=== PATIENT | female | born 1960 | race Caucasian/White ===

== ENCOUNTER 2016-04-13 20:04 | Emergency (ER) ==
[2016-04-13 20:07] VITALS: TEMP 98.7; BMI 42.0
[2016-04-13] MEDS ORDERED: CATAPRES PO STA (20:23)
[2016-04-13] MEDS ORDERED: XANAX PO STA (20:23)
--- NOTE | 2016-04-13 20:26 | ED.PDOC ---
General ED Provider: Dr. KOBI SUE Chief Complaint: Earache Stated Complaint: trying to take the ear wax out, it is not coming out. and came for the help, on exam Elevated BP, no headache, no chest pain, not short of breath. I Have BP pills but ran out of them Time Seen by Physician: 20:24 Mode of Arrival: Walk-In Information Source: Patient Primary Care Provider: KOBI SUE-[facility] Nursing and Triage Documentation Reviewed and Agree: Yes EENT Complaint Exam - Ear Complaint/Exam Symptoms Are: Still present Timing: Constant Initial Severity: Mild Current Severity: Mild Aggravating: Reports: None Alleviating: Reports: None Associated Signs and Symptoms: Denies: Ear trauma, Ear swelling, Discharge, Fever, Hearing loss, Bleeding, Sore throat, Headache, URI symptoms, Foreign body sensation, Rash, Pain to external ear, Pain to external face Related History: Reports: Similar Episode Ear Surgical History: None Vesicles to External Pinna: No Vesicles to Tragus: No TMJ Tenderness: None Mastoid Tenderness: None Tragal Tenderness: None External Canal: Normal Material in Canal: Present: Cerumen Tympanic Membrane: Erythema Differential Diagnoses: Cerumen Impaction, Otitis Media, Other (HTN) Review of Systems - Review Of Systems Constitutional: Reports: No symptoms Eyes: Reports: No symptoms Ears, Nose, Mouth, Throat: Reports: Ear pain Respiratory: Reports: No symptoms Cardiac: Reports: No symptoms GI: Reports: No symptoms : Reports: No symptoms Musculoskeletal: Reports: No symptoms Skin: Reports: No symptoms Neurological: Reports: No symptoms Endocrine: Reports: No symptoms Hematologic/Lymphatic: Reports: No symptoms All Other Systems: Reviewed and Negative Past Medical History - Past Medical History Endocrine: Reports: DM 2, Hypothyroid Cardiovascular: Reports: Hypertension Respiratory: Reports: None Hematological: Reports: None Gastrointestinal: Reports: None Genitourinary: Reports: None Neuro/Psych: Reports: None Musculoskeletal: Reports: None Cancer: Reports: None Last Menstrual Period: none - Surgical History General Surgical History: Reports: Unknown - Family History Family History: Reports: Unknown - Social History Smoking Status: Never smoker Hx Substance Use: No Alcohol Screening: Occasionally Physical Exam - Physical Exam Appearance: Well-appearing, Obese Eyes: EOMI ENT: TMs Occluded (both ears has some wax) Respiratory: Airway patent, Breath sounds clear, Breath sounds equal, Respirations nonlabored Cardiovascular: RRR, Pulses normal, No rub, No murmur GI/: Soft, Nontender, No masses, Bowel sounds normal, No Organomegaly Musculoskeletal: Normal strength, ROM intact, No edema, No calf tenderness Skin: Warm, Dry, Normal color Neurological: Sensation intact, Motor intact, Reflexes intact, Cranial nerves intact, Alert, Oriented Psychiatric: Affect appropriate, Mood appropriate Re-Evaluation - Re-Evaluation Time of Re-Evaluation: 21:11 (ear clean left side) Status: Improved Critical Care Note - Critical Care Note Total Time (mins): 0 Course - Course Orders, Labs, Meds: Orders Category Date Time Status Alprazolam [Xanax] MEDS 04/13/16 20:23 Stat 0.5 mg PO ONCE STA Clonidine HCl [Catapres] MEDS 04/13/16 20:23 Stat 0.2 mg PO ONCE STA Vital Signs: Temp Pulse Resp BP Pulse Ox 04/13/16 20:04 98.7 F 91 H 18 171/111 H 95 Departure - Departure Time of Disposition: 21:30 Disposition: HOME SELF-CARE Discharge Problem: Excess ear wax Qualifiers: Laterality: bilateral Qualifier Code: (H61.23) Impacted cerumen, bilateral Hypertension Qualifiers: Hypertension type: essential hypertension Qualifier Code: (I10) Essential ( primary) hypertension Instructions: Hypertension (ED) Condition: Stable Pt referred to PMD for follow-up: Yes Additional Instructions: Ear wash cleared the left ear wax Keep checking the blood pressure Target below 120/80 risk of CAD CVA DISCUSSED Prescriptions: Ciprofloxacin HCl/Dexameth [Ciprodex Otic Suspension] 1 drop OT TID #1 vial Allergies/Adverse Reactions: Allergies No Known Allergies Allergy (Verified 04/13/16 20:07) Home Medications: Ambulatory Orders Cinnamon Bark/Chromium/Ala [Cinnamon Alpha Lipoic Acid Cap] 1 each PO BID Ciprofloxacin HCl/Dexameth [Ciprodex Otic Suspension] 1 drop OT TID #1 vial 07/25 Linagliptin [Tradjenta] 5 mg PO DAILY 04/13/16 Lisinopril 20 mg PO DAILY 04/13/16 Disposition Discussed With: Patient
[2016-04-13] MEDS ORDERED: XANAX ONE (20:29)
[2016-04-13 21:22] VITALS: BP 144/98
== END 2016-04-13 21:25 | disposition home or self-care (01) ==
LOC: ED 20:04
DX: H61.23 Impacted cerumen, bilateral (principal); I10 Essential (primary) hypertension
CPT/HCPCS: 99283

== ENCOUNTER 2016-04-15 16:23 | Emergency (ER) ==
[2016-04-15 16:32] VITALS: BP 115/76; TEMP 101.7; BMI 41.1
--- NOTE | 2016-04-15 16:53 | DI ---
EXAM: Two-view chest HISTORY: Cough TECHNIQUE: Frontal and lateral views of the chest were obtained. FINDINGS: The heart is normal size. Lungs are clear. The pulmonary vasculature appears normal. T he osseous structures and mediastinal contours are normal. IMPRESSION: No active cardiopulmonary disease.
[2016-04-15 17:02] LABS: BASOPHILS # (AUTO) 0.1 K/uL (0-0.2); BASOPHILS % (AUTO) 0.3 % (0.0-3.0); EOSINOPHILS % (AUTO) 0.1 % (0.0-7.0); HEMOGLOBIN 12.8 g/dl (12.0-16.0); IMMATURE GRANULOCYTE % (AUTO) 0.7 % (0.0-5.0); LYMPHOCYTES # (AUTO) 1.1 K/uL (0.60-3.4); LYMPHOCYTES % (AUTO) 5.2 (10.0-50.0); MEAN CORPUSCULAR HGB CONC 32.8 (31.8-35.4); MEAN CORPUSCULAR VOLUME 85.3 fl (81.0-99.0); MONOCYTES # (AUTO) 1.2 K/uL (0.4-2.0); MONOCYTES % (AUTO) 5.4 (0-10); NEUTROPHILS # (AUTO) 19.2 K/ul (2.0-6.9); NEUTROPHILS % (AUTO) 88.3; PLATELET COUNT 291 10^3/uL (140-440); RED BLOOD COUNT 4.57 10^6/ul (4.20-5.40)
[2016-04-15 17:04] LABS: WHITE BLOOD COUNT 21.67 K/ul (4.6-10.2)
[2016-04-15 17:24] LABS: ALBUMIN 3.6 g/dL (3.4-5.0); ALBUMIN/GLOBULIN RATIO 0.84; ANION GAP 17.2; BILIRUBIN,TOTAL 0.38 mg/dL (0.00-1.20); BUN/CREATININE RATIO 13.95; CALCIUM 10.1 mg/dL (8.2-10.2); CREATININE 0.86 mg/dL (0.60-1.30); POTASSIUM 4.2 mmol/L (3.5-5.10); TOTAL PROTEIN 7.9 g/dL (6.4-8.2)
[2016-04-15 17:26] LABS: FLU INTERNAL QC INTERNAL QC VALID; RAPID FLU A NEGATIVE (NEGATIVE); RAPID FLU B NEGATIVE (NEGATIVE)
--- NOTE | 2016-04-15 18:33 | DI ---
EXAM: Two views of the soft tissues of the neck HISTORY: Pain, fever, very high white blood cell count COMPARISON: None available FINDINGS: No abnormal prevertebral soft tissue swelling is seen. The epiglottis is not abnormally thickened. The airway appears patent. There is straightening of the normal cervical lordosis. There is moderate disc height loss at C5-C6 with anterior and posterior osteophyte formation. There is 1.5 mm of posterior listhesis at C5-C6. IMPRESSION: No abnormal prevertebral soft tissue swelling. Straightening of the normal cervical lordosis. 1.5 mm grade 1 posterior listhesis at C5-C6 with moderate degenerative disc disease.
--- NOTE | 2016-04-15 18:39 | CT ---
Exam: CT of the abdomen pelvis without contrast History: Cough Technique: [address] of the abdomen and pelvis without intravascular contrast FINDINGS: The lung windows show no pulmonary parenchymal abnormalities. Heart, great vessels and p ericardium appear normal. Coronary artery calcifications are present. No pathologic lymph node enl argement or abundance. Acute findings of the chest wall soft tissues or bony thorax. Abdomen and pelvis: The gallbladder appears normal. Kidneys and proximal collecting system are unremarkable. The appendi x is normal. Bowel loops demonstrate normal caliber. No inflamatory change seen in the mesentery or retroperitoneum. Atherosclerotic calcification of the aorta without aneurysm. Colonic diverticulosis of the sigmoid. No inflammation of the pelvic fat. No free pelvic fluid. N o acute findings of the skeleton. Impression: 1. No acute findings of the chest 2. No inflammatory process, bowel or urinary obstruction. 3. Colonic diverticulosis
[2016-04-15] MEDS ORDERED: ZITHROMAX PO STA (18:48)
[2016-04-15] MEDS ORDERED: ROCEPHIN IM STA (18:48)
[2016-04-15] MEDS ORDERED: LIDOCAINE 1 % AMP 5 ML (SUTURES) IM STA (18:48)
--- NOTE | 2016-04-15 18:52 | ED.PDOC ---
General ED Provider: Dr. RIA MAURICIO Chief Complaint: Sore Throat Stated Complaint: sore throat Time Seen by Physician: 16:23 Mode of Arrival: Walk-In Information Source: Patient Exam Limitations: No limitations Nursing and Triage Documentation Reviewed and Agree: Yes Review of Systems - Review Of Systems Constitutional: Reports: Fever Eyes: Reports: No symptoms Ears, Nose, Mouth, Throat: Reports: Throat pain Respiratory: Reports: Cough Cardiac: Reports: No symptoms GI: Reports: No symptoms : Reports: No symptoms Musculoskeletal: Reports: No symptoms Skin: Reports: No symptoms Neurological: Reports: No symptoms Endocrine: Reports: No symptoms Hematologic/Lymphatic: Reports: No symptoms All Other Systems: Reviewed and Negative Past Medical History - Past Medical History Endocrine: Reports: DM 2, Hypothyroid Cardiovascular: Reports: Hypertension Respiratory: Reports: None Hematological: Reports: None Gastrointestinal: Reports: None Genitourinary: Reports: None Neuro/Psych: Reports: None Musculoskeletal: Reports: None Cancer: Reports: None Last Menstrual Period: unknown - Surgical History General Surgical History: Reports: Unknown - Family History Family History: Reports: Unknown - Social History Smoking Status: Never smoker Hx Substance Use: No Alcohol Screening: Occasionally Physical Exam - Physical Exam Appearance: Well-appearing, No pain distress, Well-nourished Eyes: AMY, EOMI, Conjunctiva clear ENT: Erythema, Exudate Respiratory: Airway patent, Breath sounds clear, Breath sounds equal, Respirations nonlabored Cardiovascular: RRR, Pulses normal, No rub, No murmur GI/: Soft, Nontender, No masses, Bowel sounds normal, No Organomegaly Musculoskeletal: Normal strength, ROM intact, No edema, No calf tenderness Skin: Warm, Dry, Normal color Neurological: Sensation intact, Motor intact, Reflexes intact, Cranial nerves intact, Alert, Oriented Psychiatric: Affect appropriate, Mood appropriate Interpretation - Radiology Interpretation Radiology Interpretation By: Radiologist Radiology Results: No acute changes Critical Care Note - Critical Care Note Total Time (mins): 0 Course - Course Hematology/Chemistry: 04/15/16 16:50 04/15/16 16:50 Orders, Labs, Meds: Lab Review 04/15/16 04/15/16 16:45 16:50 WBC 21.67 H RBC 4.57 Hgb 12.8 Hct 39.0 MCV 85.3 MCH 28.0 MCHC 32.8 RDW Coeff of Celeste 13.9 Plt Count 291 Immature Gran % (Auto) 0.7 Neut % (Auto) 88.3 Lymph % (Auto) 5.2 L [place] % (Auto) 5.4 Eos % (Auto) 0.1 Baso % (Auto) 0.3 Immature Gran # (Auto) 0.2 Neut # 19.2 H Lymph # 1.1 [place] # 1.2 Eos # 0.0 Baso # 0.1 Sodium 136 Potassium 4.2 Chloride 100 Carbon Dioxide 23 Anion Gap 17.2 BUN 12 Creatinine 0.86 Estimated GFR (MDRD) 69.00 BUN/Creatinine Ratio 13.95 Glucose 286 H Lactic Acid 22.4 H Calcium 10.1 Total Bilirubin 0.38 AST 108 H ALT 30 Alkaline Phosphatase 85 Total Protein 7.9 Albumin 3.6 Globulin 4.3 Albumin/Globulin Ratio 0.84 Influenza A (Rapid) Negative Influenza B (Rapid) Negative Orders Category Date Time Status BLOOD CULTURE Stat LAB 04/15/16 16:50 Received CBC W/ AUTO DIFF Stat LAB 04/15/16 16:50 Completed COMPREHENSIVE METABOLIC PANEL Stat LAB 04/15/16 16:50 Completed LACTIC ACID Stat LAB 04/15/16 16:50 Completed MOLECULAR GROUP A STREP Stat LAB 04/15/16 16:45 Results RAPID FLU A/B Stat LAB 04/15/16 16:45 Completed STREP SCREEN Stat LAB 04/15/16 16:45 Results Azithromycin [Zithromax] MEDS 04/15/16 18:48 Stat 1,000 mg PO ONCE STA Ceftriaxone Sodium [Rocephin] MEDS 04/15/16 18:48 Stat 1 gm IM ONCE STA Lidocaine HCl/Pf [Lidocaine 1 % Amp 5 ml (Sutures)] MEDS 04/15/16 18:48 Stat 2.1 ml IM ONCE STA CHEST, 2 VIEWS PA & LAT Stat RADS 04/15/16 16:[address] ABDOMEN/PELVIS WO CONTRAST Stat RADS 04/15/16 17:[address] CHEST W/O CONTRAST Stat RADS 04/15/16 17:32 Completed NECK, SOFT TISSUE Stat RADS 04/15/16 17:33 Completed Medications Discontinued Medications Generic Name Dose Route Start Last Admin Trade Name Freq PRN Reason Stop Dose Admin Azithromycin 1,000 mg 04/15/16 18:48 Zithromax PO 04/15/16 18:49 ONCE STA Ceftriaxone Sodium 1 gm 04/15/16 18:48 Rocephin IM 04/15/16 18:49 ONCE STA Lidocaine HCl 2.1 ml 04/15/16 18:48 Lidocaine 1 % Amp 5 Ml (Sutures) IM 04/15/16 18:49 ONCE STA Vital Signs: Temp Pulse Resp BP Pulse Ox 04/15/16 16:23 101.7 F H 107 H 20 115/76 93 L Departure - Departure Time of Disposition: 18:51 (seen with staff at all time high WBC AND POSSIBLITY OF OCCLUT INFECTION DISCUSSED WITH NURSE AT BEDSIDE PT UNDERSTANDS MUST RETURN IF UNWELL ) Disposition: HOME SELF-CARE Discharge Problem: Sore throat symptom, Uncontrolled diabetes mellitus Instructions: Type 2 Diabetes in Adults (ED), Pharyngitis (ED) Condition: Good Pt referred to PMD for follow-up: No Prescriptions: Azithromycin [Zithromax] 250 mg PO DIRECTED #6 tablet Allergies/Adverse Reactions: Allergies No Known Allergies Allergy (Verified 04/15/16 16:31) Home Medications: Ambulatory Orders Cinnamon Bark/Chromium/Ala [Cinnamon Alpha Lipoic Acid Cap] 1 each PO BID Ciprofloxacin HCl/Dexameth [Ciprodex Otic Suspension] 1 drop OT TID #1 vial 07/25 Linagliptin [Tradjenta] 5 mg PO DAILY 04/13/16 Lisinopril 20 mg PO DAILY 04/13/16 Azithromycin [Zithromax] 250 mg PO DIRECTED #6 tablet 04/15/16 Disposition Discussed With: Patient
== END 2016-04-15 19:32 | disposition home or self-care (01) ==
LOC: ED 16:23
DX: J02.9 Acute pharyngitis, unspecified (principal); E11.65 Type 2 diabetes mellitus with hyperglycemia; D72.829 Elevated white blood cell count, unspecified; Z79.899 Other long term (current) drug therapy
CPT/HCPCS: 36415; 80053; 83605; 85025; 87040; 87651; 87804; 87880; 96372; 99283

== ENCOUNTER 2016-06-25 08:44 | Outpatient (CLI) ==
[2016-06-25 14:19] VITALS: BMI 42.2
== END 2016-06-25 08:45 ==
LOC: AMBL 08:44
PROVIDERS: ATTEND Emergency Medicine
DX: R06.02 Shortness of breath (principal); R09.02 Hypoxemia; R06.2 Wheezing; I10 Essential (primary) hypertension; E11.9 Type 2 diabetes mellitus without complications

== ENCOUNTER 2016-06-25 08:53 | Inpatient (IN) ==
[2016-06-25] MEDS ORDERED: ROCEPHIN 1 GM in SODIUM CHLORIDE 100 ML IV STA (09:04)
[2016-06-25] MEDS ORDERED: SOLU-MEDROL 125 MG IVP STA (09:04)
[2016-06-25] MEDS ORDERED: DUONEB NEB STA (09:04)
[2016-06-25] MEDS ORDERED: ROCEPHIN ONE (09:08)
[2016-06-25] MEDS ORDERED: MORPHINE 2 MG/ML SYRINGE IVP STA (09:08)
[2016-06-25] MEDS ORDERED: LASIX IVP STA (09:08)
--- NOTE | 2016-06-25 09:08 | ED.PDOC ---
General ED Provider: Dr. KOBI SUE Chief Complaint: Respiratory Complaint Stated Complaint: Patient ran out of her medication, been short of breath lateley, today she could not breath, called ambulance and brought here Time Seen by Physician: 09:06 Mode of Arrival: Ambulance Information Source: Patient Primary Care Provider: KOBI SUE-[facility] Nursing and Triage Documentation Reviewed and Agree: Yes Respiratory Complaint Exam - Shortness of Air Complaint/Exam Symptoms Are: Still present Timing: Constant Initial Severity: Severe Current Severity: Severe Character: Reports: Dyspnea at rest Aggravating: Reports: Movement Alleviating: Reports: None Associated Signs and Symptoms: Reports: Wheezing, Diaphoresis, Edema, Rapid breathing. Denies: Cough, Chest pain with cough, Chest pain, Fever, Chills, Nasal congestion, Dizziness, Calf pain, Calf swelling, Labored breathing, Decreased intake Related History: Reports: Similar episode History of Healthcare-Acquired Pneumonia: No Pulmonary Embolism Risk Factors: Reports: None Cardiac Risk Factors: Reports: Smoking, Elevated lipids, Hypertension Pseudomonas Risk Factors: Reports: None Tuberculosis Risk Factors: Reports: None Home Oxygen Use: No Recent Stress Test: No Recent Echo/LV Function: No Respiratory Distress: Severe Stridor Present: No Tracheal Deviation: No Subcutaneous Emphysema: No Accessory Muscle Use: Yes Retractions: Nasal Flaring, Supraclavicular Diminished Breath Sounds: Yes Prolonged Expiratory Phase: No Unable to Speak Full Sentences: Yes Leg Swelling: Yes Differential Diagnoses: CHF, Pulmonary Edema, COPD Exacerbation, Pneumonia Quality Indicators for AMI: EKG in 10min. Review of Systems - Review Of Systems Constitutional: Reports: Diaphoresis, Malaise, Weakness Eyes: Reports: No symptoms Ears, Nose, Mouth, Throat: Reports: No symptoms Respiratory: Reports: Short of air Cardiac: Reports: Edema GI: Reports: No symptoms : Reports: No symptoms Musculoskeletal: Reports: No symptoms Skin: Reports: No symptoms Neurological: Reports: No symptoms Endocrine: Reports: No symptoms Hematologic/Lymphatic: Reports: No symptoms All Other Systems: Reviewed and Negative Past Medical History - Past Medical History Endocrine: Reports: DM 2, Hypothyroid Cardiovascular: Reports: Hypertension Respiratory: Reports: None Hematological: Reports: None Gastrointestinal: Reports: None Genitourinary: Reports: None Neuro/Psych: Reports: None Musculoskeletal: Reports: None Cancer: Reports: None Last Menstrual Period: unknown - Surgical History General Surgical History: Reports: Unknown - Family History Family History: Reports: Unknown - Social History Smoking Status: Never smoker Hx Substance Use: No Alcohol Screening: Occasionally Physical Exam - Physical Exam Appearance: Ill-appearing Ill-appearing: Severe Eyes: EOMI, Conjunctiva clear ENT: Ears normal, Nose normal, Oropharynx normal Respiratory: Breath sounds diminished, Crackles Cardiovascular: RRR, Pulses normal, No rub, No murmur GI/: Soft, Nontender, No masses, Bowel sounds normal, No Organomegaly Musculoskeletal: Edema Skin: Warm, Dry, Normal color Neurological: Sensation intact, Motor intact, Reflexes intact, Cranial nerves intact, Alert, Oriented Psychiatric: Affect appropriate, Mood appropriate Interpretation - Radiology Interpretation Radiology Interpretation By: Radiologist Radiology Results: Positive Exam Interpreted: CXR Critical Care Note - Critical Care Note Total Time (mins): 0 Course - Course Hematology/Chemistry: 06/25/16 09:05 06/25/16 09:05 Orders, Labs, Meds: Lab Review 06/25/16 06/25/16 06/25/16 09:04 09:05 09:30 WBC 15.39 H RBC 4.46 Hgb 12.6 Hct 39.7 MCV 89.0 MCH 28.3 MCHC 31.7 L RDW Coeff of Celeste 14.7 Plt Count 371 Immature Gran % (Auto) 0.8 Neut % (Auto) 56.6 Lymph % (Auto) 33.7 [place] % (Auto) 6.3 Eos % (Auto) 2.1 Baso % (Auto) 0.5 Immature Gran # (Auto) 0.1 Neut # 8.7 H Lymph # 5.2 H [place] # 1.0 Eos # 0.3 Baso # 0.1 D-Dimer 0.81 Puncture Site Rrad O2 Saturation 76.0 L ABG pH 7.118 L* ABG pCO2 45.7 H ABG pO2 54.0 L* ABG HCO3 14.8 L ABG Total CO2 16 L ABG Base Excess -15 L Luis Test + FiO2 % 21.0 Sodium 136 Potassium 3.9 Chloride 100 Carbon Dioxide 17 L Anion Gap 22.9 BUN 19 H Creatinine 1.38 H Estimated GFR (MDRD) 40.00 BUN/Creatinine Ratio 13.76 Glucose 641 H* Lactic Acid 59.4 H Calcium 9.3 Total Bilirubin 0.31 AST 30 ALT 27 Alkaline Phosphatase 82 Total Creatine Kinase 31 Troponin I 0.0200 B-Natriuretic Peptide 1135 H Total Protein 7.3 Albumin 3.3 L Globulin 4.0 Albumin/Globulin Ratio 0.83 Procalcitonin < 0.05 Acetone, Qual None Orders Category Date Time Status ABG DRAW REQUEST Stat CARDIO 06/25/16 09:04 Completed EKG-(ED ONLY) Stat CARDIO 06/25/16 09:04 Completed NEBULIZER TREATMENT Stat CARDIO 06/25/16 09:04 Completed BLOOD GLUCOSE MONITORING Q1HR CARE 06/25/16 10:10 Inactive BLOOD GLUCOSE MONITORING Q1HR CARE 06/25/16 11:17 Ordered ED IV/MEDIPORT/POWERPORT .ONCE EMERGENCY 06/25/16 09:04 Active ABG Stat LAB 06/25/16 09:04 Completed ACETONE, QUALITATIVE Stat LAB 06/25/16 09:05 Completed B-TYPE NATRIURETIC PEPTIDE Stat LAB 06/25/16 09:05 Completed BLOOD CULTURE Stat LAB 06/25/16 09:30 Received CBC W/ AUTO DIFF Stat LAB 06/25/16 09:05 Completed COMPREHENSIVE METABOLIC PANEL Stat LAB 06/25/16 09:05 Completed CREATINE KINASE Stat LAB 06/25/16 09:05 Completed D-DIMER Stat LAB 06/25/16 09:05 Completed LACTIC ACID Stat LAB 06/25/16 09:30 Completed PROCALCITONIN Stat LAB 06/25/16 09:30 Completed TROPONIN I Stat LAB 06/25/16 09:05 Completed URINALYSIS C & S IF INDICATED Stat LAB 06/25/16 10:09 Uncollected 0.9 % Sodium Chloride [Saline Flush] MEDS 06/25/16 09:04 Active 1 syr IVF PRN PRN Ceftriaxone Sodium [Rocephin] MEDS 06/25/16 09:08 Discontinued 1 gm .ROUTE .STK-MED ONE Ceftriaxone Sodium [Rocephin] 1 gm MEDS 06/25/16 09:04 Discontinued 0.9 % Sodium Chloride [Sodium Chloride] 100 ml IV ONCE Furosemide [Lasix] MEDS 06/25/16 09:08 Discontinued 60 mg IVP ONCE STA Insulin Regular, Human [Humulin R] MEDS 06/25/16 11:17 Stat 15 unit SUBCUT ONCE STA Ipratropium/Albuterol Neb [Duoneb] MEDS 06/25/16 09:04 Discontinued 1 vial NEB ONCE STA Methylprednisolone Sod Succ/Pf [Solu-Medrol 125 mg] MEDS 06/25/16 09:04 Discontinued 125 mg IVP ONCE STA Morphine Sulfate [Morphine 2 mg/ml Syringe] MEDS 06/25/16 09:08 Discontinued 2 mg IVP ONCE STA CHEST, 1V AP ONLY Stat RADS 06/25/16 09:04 Completed Medications Generic Name Dose Route Start Last Admin Trade Name Freq PRN Reason Stop Dose Admin Sodium Chloride 1 syr 06/25/16 09:04 06/25/16 09:24 Saline Flush IVF 1 syr PRN PRN Administration To flush IV Discontinued Medications Generic Name Dose Route Start Last Admin Trade Name Freq PRN Reason Stop Dose Admin Albuterol/Ipratropium 1 vial 06/25/16 09:04 06/25/16 09:33 Duoneb NEB 06/25/16 09:05 1 vial ONCE STA Administration Furosemide 60 mg 06/25/16 09:08 06/25/16 09:23 Lasix IVP 06/25/16 09:09 60 mg ONCE STA Administration Ceftriaxone Sodium 1 gm/ 100 mls @ 100 mls/hr 06/25/16 09:04 06/25/16 09:49 Sodium Chloride IV 06/25/16 10:03 100 mls/hr ONCE STA Administration Methylprednisolone Sodium Succinate 125 mg 06/25/16 09:04 06/25/16 09:24 Solu-Medrol 125 Mg IVP 06/25/16 09:05 125 mg ONCE STA Administration Morphine Sulfate 2 mg 06/25/16 09:08 06/25/16 09:26 Morphine 2 Mg/Ml Syringe IVP 06/25/16 09:09 2 mg ONCE STA Administration Vital Signs: Temp Pulse Resp BP Pulse Ox 06/25/16 08:54 95.2 F L 150 H 32 H 202/133 H 83 L Departure - Departure Time of Disposition: 11:20 Disposition: ADMITTED INPATIENT Discharge Problem: Hypertensive urgency DKA (diabetic ketoacidoses) Qualifiers: Diabetes mellitus type: type 2 Diabetes mellitus complication detail: without coma Qualifier Code: (E13.10) Other specified diabetes mellitus with ketoacidosis without coma CHF (congestive heart failure) Qualifiers: Congestive heart failure type: unspecified congestive heart failure type Congestive heart failure chronicity: acute on chronic Qualifier Code: (I50.9) Heart failure, unspecified Instructions: Type 2 Diabetes in Adults (ED) Condition: Poor Pt referred to PMD for follow-up: No Allergies/Adverse Reactions: Allergies No Known Allergies Allergy (Verified 04/15/16 16:31) Home Medications: Ambulatory Orders Cinnamon Bark/Chromium/Ala [Cinnamon Alpha Lipoic Acid Cap] 1 each PO BID Linagliptin [Tradjenta] 5 mg PO DAILY 04/13/16 Lisinopril 20 mg PO DAILY 04/13/16 Disposition Discussed With: Patient
[2016-06-25 09:13] LABS: BASOPHILS # (AUTO) 0.1 K/uL (0-0.2); BASOPHILS % (AUTO) 0.5 % (0.0-3.0); EOSINOPHILS # (AUTO) 0.3 K/ul (0.0-0.7); EOSINOPHILS % (AUTO) 2.1 % (0.0-7.0); HEMATOCRIT 39.7 % (37.0-47.0); HEMOGLOBIN 12.6 g/dl (12.0-16.0); IMMATURE GRANULOCYTE % (AUTO) 0.8 % (0.0-5.0); LYMPHOCYTES # (AUTO) 5.2 K/uL (0.60-3.4); LYMPHOCYTES % (AUTO) 33.7 (10.0-50.0); MEAN CORPUSCULAR HEMOGLOBIN 28.3 pg (27.0-31.0); MEAN CORPUSCULAR HGB CONC 31.7 (31.8-35.4); MONOCYTES % (AUTO) 6.3 (0-10); NEUTROPHILS # (AUTO) 8.7 K/ul (2.0-6.9); NEUTROPHILS % (AUTO) 56.6; PLATELET COUNT 371 10^3/uL (140-440); RED BLOOD COUNT 4.46 10^6/ul (4.20-5.40); WHITE BLOOD COUNT 15.39 K/ul (4.6-10.2)
[2016-06-25 09:20] LABS: ABG PCO2 45.7 mmHg (35-45); ABG PH 7.118 (7.35-7.45)
[2016-06-25 09:21] LABS: ABG BASE EXCESS -15 (-2.0-2.0); ABG HCO3 14.8 (22.0-26.0); ABG TCO2 16 (22.0-28.0)
[2016-06-25 09:39] LABS: ALBUMIN 3.3 g/dL (3.4-5.0); ALBUMIN/GLOBULIN RATIO 0.83; ANION GAP 22.9; BILIRUBIN,TOTAL 0.31 mg/dL (0.00-1.20); BUN/CREATININE RATIO 13.76; CALCIUM 9.3 mg/dL (8.2-10.2); CREATININE 1.38 mg/dL (0.60-1.30); POTASSIUM 3.9 mmol/L (3.5-5.10); TOTAL PROTEIN 7.3 g/dL (6.4-8.2); TROPONIN I 0.02 ng/ml (0.0000-0.4000)
--- NOTE | 2016-06-25 09:50 | DI ---
EXAM: CHEST FRONTAL VIEW HISTORY: Shortness of breath. COMPARISON: 04/15/2016 FINDINGS: Prominent heart size is stable. Interval development of central interstitial infiltrates and vascular congestion. Probable trace bilateral pleural effusions. No pneumothorax or lobar con solidation. IMPRESSION: Prominent heart size. Mild central vascular congestion and mild to moderate interstitial edema.
[2016-06-25] MEDS ORDERED: HUMALOG SUBCUT STA (10:09)
[2016-06-25] MEDS ORDERED: HUMULIN R SUBCUT STA (11:17)
[2016-06-25] MEDS ORDERED: TYLENOL PO PRN (11:22)
[2016-06-25] MEDS ORDERED: HUMULIN R 100 UNIT in SODIUM CHLORIDE 100 ML IV SCH (11:30)
[2016-06-25 14:19] VITALS: BMI 42.2
[2016-06-25] MEDS: SODIUM CHLORIDE 1,000 ML IV SCH (14:42)
[2016-06-25] MEDS: HUMULIN R SUBCUT PRN ×4 (15:21→18:13)
[2016-06-25 18:23] LABS: TROPONIN I 0.211 ng/ml (0.0000-0.4000)
[2016-06-25 18:34] LABS: BILIRUBIN,URINE Negative (NEGATIVE); KETONES,URINE Trace (NEGATIVE); LEUKOCYTE ESTERASE ,URINE Negative (NEGATIVE); NITRITE,URINE Negative (NEGATIVE); PH,URINE 5.5 (5-9); PROTEIN,URINE Negative (NEGATIVE); URINE, BLOOD Trace-intact (NEGATIVE)
[2016-06-25 18:36] LABS: ADD URINE MICROSCOPIC YES
[2016-06-25] MEDS: HUMULIN R 100 UNIT in SODIUM CHLORIDE 100 ML IV SCH (18:47)
[2016-06-25] MEDS ORDERED: ALA PO SCH (21:00)
[2016-06-25] MEDS ORDERED: CHROMIUM PO SCH (21:00)
[2016-06-25] MEDS ORDERED: CINNAMON BARK PO SCH (21:00)
[2016-06-25] MEDS ORDERED: [UNRECOGNIZED DRUG - OTHER] PO SCH (21:00)
[2016-06-26 01:34] LABS: BASOPHILS % (AUTO) 0.2 % (0.0-3.0); HEMATOCRIT 34.7 % (37.0-47.0); HEMOGLOBIN 11.5 g/dl (12.0-16.0); IMMATURE GRANULOCYTE % (AUTO) 0.9 % (0.0-5.0); LYMPHOCYTES # (AUTO) 1.2 K/uL (0.60-3.4); LYMPHOCYTES % (AUTO) 7.6 (10.0-50.0); MEAN CORPUSCULAR HGB CONC 33.1 (31.8-35.4); MEAN CORPUSCULAR VOLUME 84.6 fl (81.0-99.0); MONOCYTES % (AUTO) 6.3 (0-10); NEUTROPHILS # (AUTO) 13.6 K/ul (2.0-6.9); PLATELET COUNT 324 10^3/uL (140-440); WHITE BLOOD COUNT 15.98 K/ul (4.6-10.2)
[2016-06-26 03:40] LABS: ALBUMIN 3.3 g/dL (3.4-5.0); ALBUMIN/GLOBULIN RATIO 0.85; ANION GAP 15.1; BILIRUBIN,TOTAL 0.33 mg/dL (0.00-1.20); BUN/CREATININE RATIO 23.52; CALCIUM 9.9 mg/dL (8.2-10.2); CREATININE 0.85 mg/dL (0.60-1.30); POTASSIUM 4.1 mmol/L (3.5-5.10); TOTAL PROTEIN 7.2 g/dL (6.4-8.2)
[2016-06-26 03:46] LABS: TROPONIN I 0.193 ng/ml (0.0000-0.4000)
[2016-06-26] MEDS: SODIUM CHLORIDE 1,000 ML IV SCH ×2 (04:30→17:37)
[2016-06-26] MEDS: HUMULIN R SUBCUT PRN ×9 (04:41→21:57)
[2016-06-26] MEDS: LASIX IVP SCH (06:19)
[2016-06-26] MEDS: ZESTRIL PO SCH (08:31)
[2016-06-26] MEDS: ROCEPHIN 1 GM in SODIUM CHLORIDE 100 ML IV SCH (08:31)
[2016-06-26] MEDS: CINNAMON BARK PO SCH ×2 (08:32→20:22)
[2016-06-26] MEDS: [UNRECOGNIZED DRUG - OTHER] PO SCH ×2 (08:32→20:22)
[2016-06-26] MEDS: CHROMIUM PO SCH ×2 (08:32→20:22)
[2016-06-26] MEDS: ALA PO SCH ×2 (08:32→20:22)
[2016-06-26] MEDS ORDERED: NON-FORMULARY MEDICATION (Lisinopril [Lisinopril] 20 MG) PO SCH ×22 (09:00)
[2016-06-26] MEDS: TRADJENTA PO SCH (10:06)
[2016-06-26] MEDS: GLUCOPHAGE PO SCH ×2 (10:06→20:22)
[2016-06-26] MEDS: HYDROCHLOROTHIAZIDE PO SCH (10:06)
[2016-06-26] MEDS ORDERED: HUMULIN R ONE ×2 (11:15→14:54)
[2016-06-26] MEDS: HUMULIN R 100 UNIT in SODIUM CHLORIDE 100 ML IV SCH (15:30)
[2016-06-27] MEDS: HUMULIN R SUBCUT PRN ×6 (00:29→16:32)
[2016-06-27 04:54] LABS: BASOPHILS # (AUTO) 0.1 K/uL (0-0.2); BASOPHILS % (AUTO) 0.3 % (0.0-3.0); EOSINOPHILS # (AUTO) 0.2 K/ul (0.0-0.7); EOSINOPHILS % (AUTO) 1.2 % (0.0-7.0); HEMATOCRIT 36.9 % (37.0-47.0); HEMOGLOBIN 11.7 g/dl (12.0-16.0); IMMATURE GRANULOCYTE % (AUTO) 0.7 % (0.0-5.0); LYMPHOCYTES # (AUTO) 5.2 K/uL (0.60-3.4); LYMPHOCYTES % (AUTO) 29.1 (10.0-50.0); MEAN CORPUSCULAR HEMOGLOBIN 27.7 pg (27.0-31.0); MEAN CORPUSCULAR HGB CONC 31.7 (31.8-35.4); MEAN CORPUSCULAR VOLUME 87.2 fl (81.0-99.0); MONOCYTES # (AUTO) 1.4 K/uL (0.4-2.0); MONOCYTES % (AUTO) 7.7 (0-10); NEUTROPHILS # (AUTO) 10.8 K/ul (2.0-6.9); PLATELET COUNT 332 10^3/uL (140-440); RED BLOOD COUNT 4.23 10^6/ul (4.20-5.40); WHITE BLOOD COUNT 17.76 K/ul (4.6-10.2)
[2016-06-27 05:18] LABS: ALBUMIN 3.2 g/dL (3.4-5.0); ALBUMIN/GLOBULIN RATIO 0.89; BILIRUBIN,TOTAL 0.21 mg/dL (0.00-1.20); BUN/CREATININE RATIO 25.88; CALCIUM 9.7 mg/dL (8.2-10.2); CREATININE 0.85 mg/dL (0.60-1.30); TOTAL PROTEIN 6.8 g/dL (6.4-8.2)
[2016-06-27] MEDS: LASIX IVP SCH (05:32)
[2016-06-27] MEDS: ALA PO SCH (09:18)
[2016-06-27] MEDS: CINNAMON BARK PO SCH (09:18)
[2016-06-27] MEDS: GLUCOPHAGE PO SCH (09:18)
[2016-06-27] MEDS: HYDROCHLOROTHIAZIDE PO SCH (09:18)
[2016-06-27] MEDS: CHROMIUM PO SCH (09:18)
[2016-06-27] MEDS: [UNRECOGNIZED DRUG - OTHER] PO SCH (09:18)
[2016-06-27] MEDS: ROCEPHIN 1 GM in SODIUM CHLORIDE 100 ML IV SCH (09:19)
[2016-06-27] MEDS: TRADJENTA PO SCH (09:23)
[2016-06-27] MEDS: ZESTRIL PO SCH (09:24)
--- NOTE | 2016-06-27 13:08 | ECHO2D ---
Date of Exam: 06/27/16 Ordering Physician: HOSPITALIST-KOBI SUE Reason for Echo: CHF M-Mode Normal Adult Results LV Dimensions Normal Adult Results AoV Opening excursions >1.6 LVEDD-base- 3.5-5.8 Ao root dimensions 2.0-3.7 LVESD-base- 3.1-4.6 L. Atrium dimensions 1.9-3.8 Post. Wall thickness 0.8-1.1 IV septum (thickness) 0.7-1.2 Post. Wall excursion 0.72-1.3 Septal motion Systolic motion R. Ventricular cavity 1.5-2.0 LVEF 60% Paradoxical septal wall motion 2-D : M-MODE: MV: AV: TV: PV: CHAMBER SIZE: WALL MOTION: PERICARDIUM: MILD PERICARDIAL EFFUSION INTERPRETATION: 1. LEFT VENTRICULAR HYPERTROPHY 2. ENLARGED LEFT ATRIAL CAVITY 3. HYPOKINETIC LEFT VENTRICLE--LEFT VENTRICULAR EJECTION FRACTION 35-40% 4. DILATED LEFT VENTRICLE SIZE 5. MILD PERICARDIAL EFFUSION MTDD
[2016-06-27 14:11] VITALS: BP 126/82; TEMP 96.6
--- NOTE | 2016-06-30 09:06 | ECHO2D ---
Date of Exam: 06/27/2016 [facility]ing Physician[facility], HOSPITALIST DR. SUE Reason for Echo: CONGESTIVE HEART FAILURE, HISTORY OF DIABETES MELLITUS, HYPERTENSION, SHORTNESS OF BREATH M-Mode Normal Adult Results LV Dimensions Normal Adult Results AoV Opening excursions >1.6 >1.6 LVEDD-base- 3.5-5.8 6.2 Ao root dimensions 2.0-3.7 LVESD-base- 3.1-4.6 L. Atrium dimensions 1.9-3.8 4.2 Post. Wall thickness 0.8-1.1 1.1 IV septum (thickness) 0.7-1.2 1.2 Post. Wall excursion 0.72-1.3 0.8 Septal motion 0.7 Systolic motion R. Ventricular cavity 1.5-2.0 NORMAL LVEF 60% 35% Paradoxical septal wall motion NORMAL 2-D : NORMAL VALVES, HYPOKINETIC LEFT VENTRICLE, MILD PERICARDIAL EFFUSION, NO THROMBUS, ENLARGED LEFT VENTRICLE AND LEFT ATRIAL CAVITIES M-MODE: MV: NORMAL AV: NORMAL TV: NORMAL PV: CHAMBER SIZE: ENLARGED LEFT ATRIAL AND LEFT VENTRICLE CAVITIES WALL MOTION: HYPOKINETIC LEFT VENTRICLE PERICARDIUM: MILD PERICARDIAL EFFUSION INTERPRETATION: 1. LEFT VENTRICULAR HYPERTROPHY BORDERLINE 2. ENLARGED LEFT ATRIAL CAVITY 3. HYPOKINETIC LEFT VENTRICLE, LEFT VENTRICULAR EJECTION FRACTION 35% TO 40% 4. DILATED LEFT VENTRICLE SIZE 5. MILD PERICARDIAL EFFUSION MTDD
--- NOTE | 2016-07-01 13:59 | PN ---
DATE OF SERVICE: 06/26/16 SUBJECTIVE: The patient is was admitted with the DKA, acute on chronic heart failure. She is feeling a lot better and breathing better. S.he is off the insulin drip. REVIEW OF SYSTEMS: CONSTITUTIONAL: No fever, no chills. HEENT: Normal. ENDOCRINE: No weight gain, no weight loss. CVS: No angina symptoms. No CHF symptoms. No palpitations. No atypical chest pain for CAD. Some shortness of breath. No PND, no orthopnea. RESPIRATORY: No cough, no hemoptysis. GI: No nausea, no vomiting. No abdominal pain. : No hematuria. No polyuria. MUSCULOSKELETAL:. No joint swelling. PSYCHIATRIC: Not anxious. No depression. No suicidal thoughts. No homicidal thoughts. SKIN: Intact. No rash. PHYSICAL EXAMINATION: V/S: Blood pressure 119/74, respiratory rate 16, heart rate 100 and temperature 97.1. HEENT: Normocephalic, atraumatic. Ears, eyes, nose and throat normal. Mucosa dry. NECK: Supple. No JVD, no carotid bruit. No lymphadenopathy. LUNGS:Decreased and Clear to auscultation. No rales or rhonchi. HEART: S1, S2 normal. No S3. No murmur, gallop or regurgitation. ABDOMEN: Soft, nontender. Bowel sounds active. No rigidity. No rebound or guarding. No CVA tenderness. EXTREMITIES: No clubbing, cyanosis. 1-2+ edema left lower extremity, right lower extremity 1 edema. MUSCULOSKELETAL: No joint swelling. NEUROLOGIC: Awake, alert, oriented times three. No focal deficit. LYMPHATIC: No lymph nodes palpable. SKIN: Intact. LABS: WBC 15.98, hgb 11.5, hct 34.7, plt count 324, sodium 139, potassium 4.1, chloride 104, bicarb 25, BUN 20, creatinine 0.84 and glucose 142. A1c 8.9. ASSESSMENT: 1. Acute on chronic heart failure 2. Status post DKA 3. Diabetes with A1c 8.9 4. Hypertension 5. Dyslipidemia PLAN: 1. Continue Rocephin 2. Resume oral antidiabetic medications 3. Duo Nebs 4. Daily I&O's 5. Stop the IV fluids Will follow the patient in daily rounds. TIME SPENT: More than 30 minutes MTDD
--- NOTE | 2016-07-07 15:09 | DS ---
DATE OF SERVICE: 06/27/16 FINAL DIAGNOSIS: 1. Acute hypoxemic respiratory failure 2. DKA 3. Acute congestive heart failure with ejection fraction of 35-40%. 4. Non-compliance 5. History of diabetes 6. Hypertension 7. Dyslipidemia DISCHARGE INSTRUCTIONS: Discharge the patient home. Accu-check machine counter was given to the patient. Diet control. Weight loss been discussed with the patient in detail. Lifestyle modification been discussed. MEDICATIONS AT DISCHARGE: Hydrochlorothiazide Cinnamon Alpha Lipoic Acid Cap Tradjenta Lisinopril Glucotrol Lasix Metformin NEW PRESCRIPTIONS: Metformin 1,000 twice a day Glipizide 10mg twice a day with Meals Lasix 2mg PO every morning Lisinopril 20mg PO daily DIET INSTRUCTIONS: Consistent Carbohydrates ACTIVITY: Gradually resume as tolerated. SMOKING: Non-Smoker DISEASE SPECIFIC EDUCATION: New onset Congestive heart failure Lifestyle modification and weight loss been discussed Verbalized understanding. Pain medication Compliance been discussed and patient has been provided with the [facility] $4 scripts DKA Diabetes,poorly controlled diabetes Risk of coronary artery disease been discussed and the back verbalized understanding. HOSPITAL COURSE: Casandra Noble was seen in the emergency room and was admitted with the DKA and acute respiratory failure and acute congestive heart failure. Started on the IV fluids. After giving Lasix because of the DKA and started on the Insulin drip for the same gradually the patient started feeling better. With the Lasix the patient's breathing was a lot improved. Next day we had to stop the insulin drip , sugar have still been high then started on the oral medication Metformin and gradually the sugars were getting better in review of new onset congestive heart failure. The patient had echocardiogram which did show LVH, left atrial cavity enlargement and ejection fraction of 35-40%. Acute congestive heart failure been discussed with the patient in detail and the fluid management been discussed and verbalized understanding. She will be seen by me in the [facility] in two days and we will recheck the Accu-checks there. Lifestyle modifications and weight loss been discussed again. The patient verbalized understanding. TIME SPENT: More than 55 minutes today. TIME SPENT: More than 60 minutes. [place]
--- NOTE | 2016-07-07 15:18 | PN ---
DATE OF SERVICE: 06/25/16 SUBJECTIVE: The patient was admitted from the emergency room by me. Again came here to recheck because the initial blood sugar dropped to 100 and the insulin was not started but again the sugars went up to 300 and 400. The patient has to be restarted on the insulin drip. Breathing is some better. We will go ahead and order the A1c and continue the insulin drip at given time. REVIEW OF SYSTEMS: CONSTITUTIONAL: No fever, no chills. HEENT: Normal. ENDOCRINE: No weight gain, no weight loss. CVS: No angina symptoms. No CHF symptoms. No palpitations. No atypical chest pain for CAD. No shortness of breath. No PND, no orthopnea. RESPIRATORY: No cough, no hemoptysis. GI: No nausea, no vomiting. No abdominal pain. : No hematuria. No polyuria. MUSCULOSKELETAL:. No joint swelling. PSYCHIATRIC: Not anxious. No depression. No suicidal thoughts. No homicidal thoughts. SKIN: Intact. No rash. PHYSICAL EXAMINATION: V/S: Blood pressure 138/74, respiratory rate 18, heart rate 100, temperature 97.0. GENERAL: The patient is lying in the best comfortably. HEENT: Normocephalic, atraumatic. Ears, eyes, nose and throat normal. NECK: Supple. No JVD, no carotid bruit. No lymphadenopathy. LUNGS: Still has basilar crackles. No rales or rhonchi. HEART: S1, S2 normal. No S3. No murmur, gallop or regurgitation. ABDOMEN: Soft, nontender. Bowel sounds active. No rigidity. No rebound or guarding. No CVA tenderness. EXTREMITIES: No clubbing, cyanosis. 1+ edema. MUSCULOSKELETAL: No joint swelling. NEUROLOGIC: Awake, alert, oriented times three. No focal deficit. LYMPHATIC: No lymph nodes palpable. SKIN: Intact. LABS: Lactic acid 89.4 ASSESSMENT: 1. Diabetic ketoacidosis, starting the insulin drip 2. Acute respiratory failure, with acute congestive heart failure rule out Diastolic versus systolic 3. Non-compliance 4. Diabetes 5. Hypertension TIME SPENT: More than 45 minutes MTDD
--- NOTE | 2016-08-16 15:18 | PN ---
DATE OF SERVICE 06/25/16: CRITICAL CARE NOTE SUBJECTIVE: We had to start the insulin drip; it was critical care time 50 minutes. [place]
== END 2016-06-27 17:50 | disposition home or self-care (01) | DRG 189 ==
LOC: ED 08:53 → SCU 13:10
PROVIDERS: ADMIT Emergency Medicine; ATTEND Emergency Medicine
DX: J96.01 Acute respiratory failure with hypoxia (principal); E13.10 Other specified diabetes mellitus with ketoacidosis without coma; I16.0 Hypertensive urgency; I51.7 Cardiomegaly; I51.89 Other ill-defined heart diseases; I50.9 Heart failure, unspecified; I10 Essential (primary) hypertension; E78.5 Hyperlipidemia, unspecified; Z91.120 Patient's intentional underdosing of medication regimen due to financial hardship; Z79.84 Long term (current) use of oral hypoglycemic drugs; Z79.899 Other long term (current) drug therapy
CPT/HCPCS: 36415; 80053; 81001; 82009; 82550; 82803; 82962; 83036; 83605; 83880; 84145; 84484; 85025; 85379; 87040; 87081; 93005; 93010; 94640; 96365; 96372; 96375; 97802; 99233; 99239; 99284; 99291